=== PATIENT | female | born 1990 | race Caucasian/White ===

== ENCOUNTER 2016-08-08 07:56 | Day surgery (SDC) | payer OTHER ==
[~2016-08-08] VITALS: Ht 157.5 cm; Wt 62.6 kg
[~2016-08-08 07:56] MED LIST: AMOXICILLIN500 MG PO; BACTRIM DS1 TAB PO; BENZONATATE200 MG PO; BIRTH CONTROL; COLD PO; COMPRESSION STOCKING TOP; DEPO-PROVER150 MG/ML IM; FLEXERIL5 M1 PO; FLEXERIL5 MG PO; FLONASE NASAL50 MCG; MEDDOSEPAK OR; MEDDOSEPAK PO; MOTRIN800 MG/TAB PO; MUCINEX600 MG PO; NAPROSYN500 MG PO; NO HOME MEDS; ONDANSETRON4 MG PO; PERCOCET 5/325M1 TAB PO; ZITHROMAX250 MG PO; ZOFRAN ODT4 MG PO; [UNRECOGNIZED DRUG - OTHER] PO
[2016-08-08] MEDS ORDERED: PHENERGAN25 MG/TAB PO (15:23)
[2016-08-08] MEDS ORDERED: PERCOCET 10/31 COMBO PO (15:23)
[2016-08-08 16:04] VITALS: BP 108/69
== END 2016-08-08 16:40 | disposition home or self-care (01) | DRG 512 ==
LOC: ORM 07:56
PROVIDERS: ATTEND Orthopaedic Surgery
PROC: 0LQ24ZZ Repair Left Shoulder Tendon, Percutaneous Endoscopic Approach (ICD-10-PCS; principal; 2016-08-08)
PROC: 0RNK4ZZ Release Left Shoulder Joint, Percutaneous Endoscopic Approach (ICD-10-PCS; 2016-08-08)
DX: M75.112 Incomplete rotator cuff tear or rupture of left shoulder, not specified as traumatic (principal); M75.52 Bursitis of left shoulder
CPT/HCPCS: J2710

== ENCOUNTER 2017-11-14 20:04 | Emergency (ER) | payer OTHER ==
[~2017-11-14] VITALS: Ht 157.5 cm; Wt 75.2 kg
[~2017-11-14 20:04] MED LIST changes: +MOTRIN800 MG PO; -MOTRIN800 MG/TAB PO; +PERCOCET 10/31 COMBO PO; +PHENERGAN25 MG/TAB PO
[2017-11-14] MEDS ORDERED: MEDROXYPR A150 MG/M1 IM (21:11)
[2017-11-14] MEDS ORDERED: IBUPROFEN600 MG PO (21:36)
[2017-11-14 21:40] VITALS: BP 132/91
== END 2017-11-14 21:40 | disposition home or self-care (01) | DRG 605 ==
LOC: ED 20:04
DX: S90.32XA Contusion of left foot, initial encounter (principal); W22.8XXA Striking against or struck by other objects, initial encounter; Y93.9 Activity, unspecified; Y92.009 Unspecified place in unspecified non-institutional (private) residence as the place of occurrence of the external cause; R21 Rash and other nonspecific skin eruption

== ENCOUNTER → 2018-07-29 | Outpatient (REF) ==
[~2018-07-29] MED LIST changes: +IBUPROFEN600 MG PO; +MEDROXYPR A150 MG/M1 IM
[2018-07-29 12:59] LABS: CHOLESTEROL HDL RATIO 3.7 (<4.4 (CALC))
== END | disposition home or self-care (01) | DRG 951 ==
LOC: LAB 11:08
PROVIDERS: ATTEND Family Medicine
DX: Z02.6 Encounter for examination for insurance purposes (principal)

== ENCOUNTER 2022-03-09 11:19 | Emergency (ER) | payer OTHER ==
[~2022-03-09] VITALS: Ht 157.5 cm; Wt 75.0 kg
[2022-03-09 12:20] VITALS: BP 135/94
== END 2022-03-09 12:15 | disposition home or self-care (01) | DRG 605 ==
LOC: ED 11:19
DX: S01.01XA Laceration without foreign body of scalp, initial encounter (principal); W01.0XXA Fall on same level from slipping, tripping and stumbling without subsequent striking against object, initial encounter

== ENCOUNTER 2022-12-15 05:42 | Emergency (ER) | payer OTHER ==
[2022-12-15] VITALS (11 sets, daily range): BP systolic 115–147; BP diastolic 80–114
[~2022-12-15] VITALS: Ht 157.5 cm; Wt 79.3 kg
[2022-12-15 06:23] LABS: BASO% 0.5 % (0-3); EOS% 1.3 % (0-8); HEMATOCRIT 44.1 % (37.0-47.0); HEMOGLOBIN 14.7 g/dl (12.0-16.0); IMMATURE GRANULOCYTES 0.3 % (0.0-5.0); LYMPH% 32.9 % (15-41); MEAN CELL VOLUME 83.4 fL CALC (80.0-100.0); MEAN CORPUSCULAR HGB 27.8 pG CALC (26.0-32.0); MEAN CORPUSCULAR HGB CONC 33.3 g/dL CAL (32.0-36.0); MONO% 6.6 % (2-13); NEUT# 5.13 thou/uL (2.00-7.15); NEUT% 58.4 % (42-76); RED BLOOD COUNT 5.29 mill/uL (4.20-5.60); RED CELL DISTRI WIDTH 11.9 % (11.5-15.5)
[2022-12-15 06:33] LABS: ALBUMIN 4.7 g/dL (3.2-5.0); ALKALINE PHOSPHATASE 47 u/l (38-126); ANION GAP 16 (6-22 (CALC)); BILIRUBIN, TOTAL 0.5 mg/dL (0.02-1.3); BUN 12 mg/dL (7-17); BUN/CREATININE RATIO 14 (12-20 (CALC)); CARBON DIOXIDE 21 mmol/l (22-30); CHLORIDE 108 mmol/l (95-108); CREATININE 0.8 mg/dL (0.5-1.0); GFR FOR AFR.AMER. > 60 ML/MIN (>=60 (CALC)); GFR OTHER RACES > 60 ML/MIN (>=60 (CALC)); LIPASE 143 u/l (23-300); POTASSIUM 3.9 mmol/l (3.5-5.1); SGOT/AST 24 u/l (14-36); SODIUM 140 mmol/l (137-146); TOTAL PROTEIN 8.6 g/dL (6.3-8.2)
[2022-12-15 08:48] LABS: URINE BILIRUBIN - DIPSTICK NEGATIVE (NEGATIVE); URINE COLOR YELLOW; URINE GLUCOSE - DIPSTICK NEGATIVE (NEGATIVE); URINE KETONE Negative (NEGATIVE); URINE PROTEIN - DIPSTICK Trace mg/dL (NEG-TRACE); URINE SPECIFIC GRAVITY 1.015
[2022-12-15 08:49] LABS: URINE BLOOD DIPSTICK TRACE (NEGATIVE); URINE LEUK ESTERASE SMALL (NEGATIVE); URINE NITRITE - DIPSTICK NEGATIVE (Negative); URINE UROBILINOGEN - DIPSTICK 0.2 E.U./dL (0.2)
[2022-12-15 08:54] LABS: URINE SQUAMOUS EPITHELIAL CELL FEW EPI/hpf (0-FEW)
[2022-12-15] MEDS ORDERED: BACTRIM DS1 TAB PO (09:23)
[2022-12-18] MEDS ORDERED: OMEPRAZOLE20 MG PO (12:08)
[2022-12-18] MEDS ORDERED: ALLERGY RELF PO (12:08)
[2022-12-18] MEDS ORDERED: D3 50005000 UNIT PO (12:09)
[2022-12-18] MEDS ORDERED: DEPO (12:09)
== END 2022-12-15 09:50 | disposition home or self-care (01) | DRG 392 ==
LOC: ED 05:42
PROVIDERS: Family Medicine
DX: R10.11 Right upper quadrant pain (principal)
CPT/HCPCS: Q9967; S0164

== ENCOUNTER 2023-01-02 07:40 | Day surgery (SDC) | payer OTHER ==
[~2023-01-02] VITALS: Ht 160 cm; Wt 35.8 kg
[~2023-01-02 07:40] MED LIST changes: +ALLERGY RELF PO; +D3 50005000 UNIT PO; +DEPO; +OMEPRAZOLE20 MG PO
[2023-01-02] MEDS ORDERED: MILK OF MAGNES7.75 % PO (08:01)
[2023-01-02] MEDS ORDERED: PREVACID15 M1 PO (09:47)
[2023-01-02 12:40] VITALS: BP 137/89
[2023-01-09] MEDS ORDERED: CARAFATE PO (11:33)
== END 2023-01-02 10:32 | disposition home or self-care (01) | DRG 384 ==
LOC: ORM 07:40
PROVIDERS: ATTEND Surgery
PROC: 0DB78ZX Excision of Stomach, Pylorus, Via Natural or Artificial Opening Endoscopic, Diagnostic (ICD-10-PCS; principal; 2023-01-02)
DX: K25.9 Gastric ulcer, unspecified as acute or chronic, without hemorrhage or perforation (principal); K31.9 Disease of stomach and duodenum, unspecified; K44.9 Diaphragmatic hernia without obstruction or gangrene

== ENCOUNTER → 2023-05-31 | Emergency (ER) | payer OTHER ==
[~2023-05-31] VITALS: Ht 160 cm; Wt 83.0 kg
[~2023-05-31] MED LIST changes: +CARAFATE PO; +MILK OF MAGNES7.75 % PO; +PEPCID AC10 MG PO; +PREVACID15 M1 PO
[2023-05-31 15:04] VITALS: BP 129/95
== END | disposition home or self-care (01) | DRG 556 ==
LOC: ED 14:19
DX: M79.672 Pain in left foot (principal); W50.0XXA Accidental hit or strike by another person, initial encounter; Y92.89 Other specified places as the place of occurrence of the external cause; Y99.0 Civilian activity done for income or pay